=== PATIENT | female | born 1970 | race Two or more races ===

== ENCOUNTER 2018-02-19 14:36 | Emergency (ER) | payer MEDICAID ==
[~2018-02-19] VITALS: Ht 167.6 cm; Wt 72.6 kg
[2018-02-19] MEDS ORDERED: DILANTIN (15:04)
[2018-02-19] MEDS ORDERED: LORAZEPAM 2 MG/1 ML VIAL IV ONE (15:15)
[2018-02-19] MEDS ORDERED: LORAZEPAM 2 MG/1 ML VIAL ONE (15:40)
--- NOTE | 2018-02-19 15:40 | NUR ---
Pt back from CT, pt is A/O x 4 at this time with NAD noted. Family is at bedside.
[2018-02-19 15:57] LABS: BASOPHILS % (AUTO) 0.3 % (0.0-2.0); EOSINOPHILS # (AUTO) 0.1 K/uL (0.0-0.7); EOSINOPHILS % (AUTO) 0.6 % (0.0-7.0); HEMATOCRIT 37.9 % (31.2-41.9); LYMPHOCYTES # (AUTO) 1.3 K/uL (20.0-40.0); LYMPHOCYTES % (AUTO) 9.6 % (20.5-51.5); MEAN CORPUSCULAR HEMOGLOBIN 32.2 uug (24.7-32.8); MEAN CORPUSCULAR HGB CONC 34 g/dL (32.3-35.6); MEAN CORPUSCULAR VOLUME 93.9 fL (75.5-95.3); MONOCYTES # (AUTO) 0.7 K/uL (2.0-10.0); MONOCYTES % (AUTO) 5.4 % (0.0-11.0); NEUTROPHILS # (AUTO) 11.2 K/uL (1.8-8.9); NEUTROPHILS % (AUTO) 84.1 % (38.5-71.5); PLATELET COUNT (AUTO) 273 K/uL (179-408); RED BLOOD CELL COUNT(AUTO) 4.04 MIL/uL (3.63-4.92); WHITE BLOOD COUNT (AUTO) 13.3 K/uL (3.8-11.8)
[2018-02-19 16:08] LABS: CARBON DIOXIDE 26 mmol/L (21-32); CHLORIDE 104 mmol/L (98-107); CREATININE 0.9 mg/dL (0.6-1.3); GLUCOSE 121 mg/dL (74-106); POTASSIUM 3.7 mmol/L (3.5-5.1); UREA NITROGEN, BLOOD 15 mg/dL (7-18)
[2018-02-19 16:22] LABS: ALANINE AMINOTRANSFERASE 32 U/L (14-59); ALKALINE PHOSPHATASE 92 U/L (50-136); ASPARTATE AMINOTRANSFERASE 22 U/L (15-37); BILIRUBIN,DIRECT < 0.1 mg/dL (0.0-0.2); BILIRUBIN,TOTAL 0.2 mg/dL (0.2-1.0); PHENYTOIN (DILANTIN) 4.4 ug/mL (10.0-20.0); TOTAL PROTEIN, SERUM 7.4 g/dL (6.4-8.2)
[2018-02-19] MEDS ORDERED: PHENYTOIN SODIUM IV 500 MG in IV NORMAL SALINE 50 ML IV ONE (17:30)
[2018-02-19] MEDS ORDERED: PHENYTOIN SODIUM 250 MG/5 ML VIAL IV ONE (17:45)
--- NOTE | 2018-02-19 18:05 | NUR ---
PT SAYS FEELS BETTER, DNEIS ANY headache, n/v or dizziness. pt with family member. pt not driving
--- NOTE | 2018-02-19 18:29 | NUR ---
Patient discharged to home in stable conditon. Written and verbal after care instructions given. Patient verbalizes understanding of instructions.pt walks in steady gait. all the studies provided for the pt to follow up with dr. warren, pt own neurologist
[2018-02-19 18:30] VITALS: BP 119/71
== END 2018-02-19 18:32 | disposition home or self-care (01) ==
LOC: ER 14:36
DX: G40.409 Other generalized epilepsy and epileptic syndromes, not intractable, without status epilepticus (principal)
CPT/HCPCS: 36415; 70450; 80048; 80076; 80185; 85025; 93005; 96365; 96375; 99285; A4663; J1165; J2060; J7050